=== PATIENT | female | born 1985 | race Two or more races ===

== ENCOUNTER 2016-09-29 11:41 | Emergency (ER) | payer MEDICAID ==
[~2016-09-29] VITALS: Ht 157.5 cm; Wt 66.2 kg
[2016-09-29 14:51] VITALS: BP 131/88
== END 2016-09-29 15:56 | disposition home or self-care (01) ==
LOC: ER 11:41
DX: D16.11 Benign neoplasm of short bones of right upper limb (principal)
CPT/HCPCS: 73130

== ENCOUNTER 2016-10-15 17:45 | Emergency (ER) | payer MEDICAID ==
[~2016-10-15] VITALS: Ht 157.5 cm; Wt 66.2 kg
[2016-10-15 17:48] VITALS: BP 137/63
== END 2016-10-15 22:00 | disposition home or self-care (01) ==
LOC: ER 17:48
DX: M26.621 Arthralgia of right temporomandibular joint (principal); H92.01 Otalgia, right ear
CPT/HCPCS: 70450; 70480